=== PATIENT | female | born 1965 | race Caucasian/White ===

== ENCOUNTER 2017-05-09 16:41 | Emergency (ER) | payer OTHER ==
[~2017-05-09] VITALS: Ht 160 cm; Wt 81.8 kg
[~2017-05-09 16:41] MED LIST: INSU100V12 SQ; METF500T4 PO; METO50 PO; VENL-67 PO; VITAD1000 PO
[2017-05-09] MEDS ORDERED: OXYC-522 PO (17:11)
[2017-05-09] MEDS ORDERED: ALPR0.5T8 PO (17:11)
[2017-05-09] MEDS ORDERED: OXYC-341 PO (17:11)
[2017-05-09] MEDS ORDERED: MAGNESIUM SULFATE 2 GM, MVI, ADULT NO.1 WITH VIT K 10 ML, THIAMINE HCL 100 MG, FOLIC AC... IV ONE ×5 (17:15)
[2017-05-09 17:17] LABS: GLUCOSE,POINT OF CARE 377 MG/DL (70-110)
[2017-05-09 17:45] LABS: BASOPHILS % (AUTO) 0.3 % (0.0-2.0); EOSINOPHILS % (AUTO) 0.4 % (1.0-6.0); HEMATOCRIT 40.9 % (36-46); HEMOGLOBIN 13.8 g/dL (12.0-16.0); LYMPHOCYTES # (AUTO) 1.6 K/uL (1.0-4.8); LYMPHOCYTES % (AUTO) 19.2 % (22.0-44.0); MEAN CORPUSCULAR HEMOGLOBIN 30.8 pg (26.0-34.0); MEAN CORPUSCULAR HGB CONC 33.9 G/dL (31.0-37.0); MEAN CORPUSCULAR VOLUME 91 fL (80-100); MONOCYTES # (AUTO) 0.3 K/uL (0.1-1.0); MONOCYTES % (AUTO) 3.4 % (2.0-9.0); NEUTROPHILS # (AUTO) 6.5 K/uL (1.8-7.7); NEUTROPHILS % (AUTO) 76.7 % (40.0-70.0); PLATELET COUNT (AUTO) 279 K/uL (150-450); RED BLOOD CELL COUNT(AUTO) 4.49 MIL/uL (4.00-5.20); RED CELL DISTRIBUTION WIDTH 13.7 % (11.5-14.5); WHITE BLOOD COUNT (AUTO) 8.5 K/uL (4.5-11.0)
[2017-05-09 18:04] LABS: ALANINE AMINOTRANSFERASE 26 U/L (12-78); ALBUMIN 3.6 g/dL (3.4-5.0); ANION GAP 18 mmol/L (8-16); ASPARTATE AMINOTRANSFERASE 24 U/L (15-37); BILIRUBIN,TOTAL 0.2 mg/dL (0.1-1.0); CALCIUM, TOTAL 8.6 mg/dL (8.8-10.5); CARBON DIOXIDE 20 mmol/L (22-29); CHLORIDE 102 mmol/L (98-107); CREATININE 1.14 mg/dL (0.60-1.30); GLOMERULAR FILTR. RATE CALC 50 mL/min (>60); SODIUM SERUM 140 mmol/L (136-145); TOTAL PROTEIN, SERUM 7.6 g/dL (6.4-8.2); UREA NITROGEN, BLOOD 11 mg/dL (7-18)
[2017-05-09 18:10] LABS: ACETAMINOPHEN < 2 mcg/mL (10-30); POTASSIUM 2.8 mmol/L (3.5-5.1); SALICYLATE 5.2 mg/dL (2.8-20.0)
[2017-05-09 18:58] LABS: APPEARANCE,URINE TURBID (CLEAR); GLUCOSE, URINE (UA) >=1000 mg/dL (NEGATIVE); KETONES,URINE NEGATIVE (NEGATIVE); LEUKOCYTE ESTERASE ,URINE NEGATIVE (NEGATIVE); OCCULT BLOOD,URINE NEGATIVE (NEGATIVE); PROTEIN,URINE POS 1+ (NEGATIVE)
[2017-05-09 19:01] LABS: ADD UA MICROSCOPIC YES
[2017-05-09 19:02] LABS: AMORPHOUS SEDIMENT,UR Few /LPF (None Seen); SQUAMOUS EPITHELIAL CELL,UR Many /LPF (None Seen)
[2017-05-09] MEDS ORDERED: SODIUM CHLORIDE 0.9% 500 ML IV ONE (19:14)
[2017-05-09] MEDS: POTASSIUM CHL 10 MEQ/WATER 50 ML IV SCH ×2 (19:21→20:15)
[2017-05-09] MEDS: POTASSIUM CHLORIDE 20 MEQ ER TABLET PO ONE ×3 (19:21→20:25)
[2017-05-09 19:41] LABS: GLUCOSE,POINT OF CARE 230 MG/DL (70-110)
[2017-05-09] MEDS ORDERED: KETOROLAC TROMETHAMINE 30 MG/ML VIAL IVP ONE (19:45)
[2017-05-09 21:37] LABS: GLUCOSE,POINT OF CARE 229 MG/DL (70-110)
[2017-05-09 21:47] LABS: SALICYLATE 4.2 mg/dL (2.8-20.0)
[2017-05-09 21:51] LABS: ACETAMINOPHEN < 2 mcg/mL (10-30)
[2017-05-09 23:50] VITALS: BP 135/60
== END 2017-05-10 00:07 | disposition home or self-care (01) ==
LOC: EMS 16:47
DX: F10.129 Alcohol abuse with intoxication, unspecified (principal); E87.6 Hypokalemia; S00.03XA Contusion of scalp, initial encounter; F41.9 Anxiety disorder, unspecified; E11.9 Type 2 diabetes mellitus without complications; I10 Essential (primary) hypertension; F32.9 Major depressive disorder, single episode, unspecified; F17.200 Nicotine dependence, unspecified, uncomplicated; Z88.1 Allergy status to other antibiotic agents; Y90.8 Blood alcohol level of 240 mg/100 ml or more; X58.XXXA Exposure to other specified factors, initial encounter; Y93.89 Activity, other specified; Y92.89 Other specified places as the place of occurrence of the external cause; Y99.8 Other external cause status
CPT/HCPCS: 36415; 70450; 80053; 80307; 81001; 82962; 85025; 93005; 96361; 96365; 96375; 99285; 99406; G0480; J1885; J3411; J3475; J3480; J3490 ×2; J7030; J7040; G0481

== ENCOUNTER 2017-12-12 01:13 | Emergency (ER) | payer OTHER ==
[~2017-12-12] VITALS: Ht 167.6 cm; Wt 75.0 kg
[~2017-12-12 01:13] MED LIST changes: +ALPR0.5T8 PO; +HYDR-309 PO; +HYDR2 PO; +INSLAN SQ; +INSNOV SQ; -METF500T4 PO; -VITAD1000 PO
[2017-12-12 01:28] LABS: GLUCOSE,POINT OF CARE 185 MG/DL (70-110)
[2017-12-12] MEDS ORDERED: PROMETHAZINE HCL 50 MG/ML VIAL IM ONE (03:30)
[2017-12-12] MEDS ORDERED: MORPHINE SULFATE 2 MG/ML SYRINGE IM ONE (03:30)
[2017-12-12] MEDS ORDERED: MORPHINE SULFATE 10 MG/ML SYRINGE IM ONE (03:45)
[2017-12-12 04:06] VITALS: BP 134/77
[2017-12-14] MEDS ORDERED: HALOPERIDOL 5 MG TABLET PO PRN (06:00)
[2017-12-14] MEDS ORDERED: ZOLPIDEM TARTRATE 10 MG TABLET PO PRN (06:00)
[2017-12-14] MEDS ORDERED: LORazepam 2 MG TABLET PO PRN (06:00)
== END 2017-12-12 04:30 | disposition home or self-care (01) ==
LOC: EMS 01:14
DX: M54.5 Low back pain (principal); E11.65 Type 2 diabetes mellitus with hyperglycemia; R45.851 Suicidal ideations; G89.29 Other chronic pain; I10 Essential (primary) hypertension; F17.210 Nicotine dependence, cigarettes, uncomplicated; F11.90 Opioid use, unspecified, uncomplicated; F13.90 Sedative, hypnotic, or anxiolytic use, unspecified, uncomplicated; Z88.6 Allergy status to analgesic agent; Z79.4 Long term (current) use of insulin
CPT/HCPCS: 82962; 96372; 99284; 99406; J2270; J2550